=== PATIENT | female | born 1995 | race Caucasian/White ===

== ENCOUNTER → 2020-07-15 10:49 | Outpatient (BNVA) | payer MEDICAID, SELFPAY | PROVIDERS: PCP Emergency Medicine; Visit Provider Advanced Practice Midwife | DX: Z76.89 Persons encountering health services in other specified circumstances (principal) ==

== ENCOUNTER 2021-07-19 13:47 | Outpatient (REF) | payer MEDICAID, SELFPAY ==
[2021-07-20 09:20] LABS: CT PCR NOT DETECTED (Not Detect.); NG PCR NOT DETECTED (Not Detect.)
== END 2021-07-19 13:48 | disposition home or self-care (01) ==
LOC: HO.LAB 13:47
PROVIDERS: Visit Provider Obstetrics & Gynecology
DX: Z30.09 Encounter for other general counseling and advice on contraception (principal)
CPT/HCPCS: 87491; 87591; 99212

== ENCOUNTER 2023-06-09 10:36 | Outpatient (REF) | payer MEDICAID, SELFPAY | END 2023-06-09 10:37 | disposition home or self-care (01) | LOC: HO.HHCL 10:36 | PROVIDERS: Visit Provider Family Medicine | DX: Z00.00 Encounter for general adult medical examination without abnormal findings (principal); Z11.3 Encounter for screening for infections with a predominantly sexual mode of transmission | CPT/HCPCS: 0353U; 80048; 80061; 80076; 83735; 84443; 85025; 86780; 86803; 87389 ==

== ENCOUNTER 2024-05-30 14:28 | Outpatient (REF) | payer MEDICAID, SELFPAY ==
[2024-05-30 16:21] LABS: MANUAL DIFF FLAG NO
[2024-05-30 16:23] LABS: Basophils Percent Auto 0.4 % (0-2); Eosinophils Absolute Auto 0.4 X10*3/uL (0.0-0.4); Eosinophils Percent Auto 4.4 % (0-4); Hematocrit 39.2 % (37.0-47.0); Hemoglobin 12.6 g/dl (12.0-16.0); Imm Gran Abs Auto 0.03 X10*3/uL (0.00-0.03); Imm Gran Pct Auto 0.4 % (0.0-0.4); Lymphocytes Absolute Auto 2.3 X10*3/uL (1.2-4.9); Lymphocytes Percent Auto 28.7 % (20-40); Mean Corpuscular HGB Conc 32.1 g/dl (31.0-35.0); Mean Corpuscular Volume 84.1 fL (80.0-98.0); Mean Platelet Volume 10.9 fL (9.4-12.3); Monocytes Absolute Auto 0.4 X10*3/uL (0.1-1.2); Monocytes Percent Auto 5.5 % (2-11); Neutrophils Absolute Auto 4.8 x10*3/uL (2.0-8.3); Neutrophils Percent Auto 60.6 % (45-73); Platelet Count 272 X10*3/uL (160-400); Red Blood Count 4.66 X10*6/uL (4.20-5.50); White Blood Count 7.9 X10*3/uL (4.8-10.8)
[2024-05-30 17:13] LABS: TSH reflex Free T4 1.17 uIU/mL (0.32-4.0); Vitamin D 25-OH Total 23.8 ng/mL (>30)
[2024-05-31 04:05] LABS: Syphilis Screen Nonreactive (Nonreactive)
[2024-05-31 04:30] LABS: HIV AB/AG Nonreactive (Nonreactive); HIV Num 1 0.04 S/CO (0.00-0.99)
== END 2024-05-30 14:29 | disposition home or self-care (01) ==
LOC: HO.HHCL 14:28
PROVIDERS: Visit Provider Family Medicine
DX: Z12.4 Encounter for screening for malignant neoplasm of cervix (principal); F41.9 Anxiety disorder, unspecified; Z11.3 Encounter for screening for infections with a predominantly sexual mode of transmission; R51.9 Headache, unspecified; G89.29 Other chronic pain; R53.83 Other fatigue
CPT/HCPCS: 36415; 82306; 84443; 85025; 86780; 87389; 88175

== ENCOUNTER 2025-01-31 14:06 | Outpatient (REF) | payer MEDICAID, SELFPAY ==
--- OUTSIDE RECORDS SUMMARY | 2025-01-31 14:09 | XMS_ITS | Encounter Summary ---
Author Organization [employer] Address [address] [place] [address] 7 [place] [address] Care Team Providers Care Tailer In Name Role Phone Ainsley Singh MD Primary Care Provider +1- [phone] Encounter Details Date Type Department Care Team (Late st Contact Info) Description 05/10/2023 Orders Only [facility] MEDICINE [address] [place] [phone] Ainsley Singh MD [address] [place], [place] [phone] Social History Tobacco Use Types Packs/Day Years Used Date Smoking Tobacco: Never Passive Smoke Exposure: Never Smokeless Tobacco: Never Comments Unknown Sex and Gender Information Value Date Recorded Sex Assigned at Female 07/04/2022 10:36 AM EDT Legal Sex Female 10:36 AM EDT Gender Identity Female 07/04/2022 10:36 AM EDT Sexual Orientation Straight 07/04/2022 10 :36 AM EDT documented as of this encounter Plan of Treatment Upcoming Encounters Date Type Department Care Team (Late st Contact Info) Description 02/03/2025 10:45 AM EDT Office Visit [facility] MEDICINE [address] [place] [address] Ainsley Singh MD [address] [place], [place] [phone] 05/07/2025 3:00 PM EDT Office Visit [facility] ADULT DENTAL [address] [place] [address] Lea Miranda [address] [place] [address] documented as of this encounter Procedures Procedure Name Priority Date/Time Associated Diagnosis Comments SYPHILIS SCREEN Routine 06/09/2023 10:41 AM EDT HIV ANTIBODY/ANTIGEN ([place] DPH) Routine 06/09/2023 10:41 AM EDT documented in this encounter Results * HIV Ab/Ag ([place] DPH) (06/09/2023 10:41 AM EDT) HIV AB/AG Nonreactive Nonreactive [facility] Comment:HIV-1 p24 Ag and/or HIV-1/HIV-2 Ab not detected.A test result that is nonreactive does not exclude thepossibility of exposure to or infection with HIV-1 and/orHIV-2. Nonreactive results in this assay for individualswith prior exposure to HIV-1 and/or HIV-2 may be due toantigen and antibody levels that are below the limit ofdetection of this assay.The [employer] HIV Ag/Ab Combo assay result andsupplemental assay results should be interpreted inconjunction with the patient's clinical presentation,history and other laboratory results. If the results areinconsistent with clinical evidence, additional testing issuggested to confirm the result. 06/09/2023 10:4 1 AM EDT 06/09/2023 11:22 AM EDT Ainsley Singh MD LAB BLOOD ORDERABLES Final Result Performing Organization Address [facility] Co de Phone Number [facility] [address] [place] [phone] * Syphilis Screen (06/09/2023 10:41 AM EDT) Syphilis Screen Nonreactive Nonreactive [facility] 06/09/2023 10:4 1 AM EDT 06/09/2023 11:22 AM EDT Ainsley Singh MD LAB BLOOD ORDERABLES Final Result Performing Organization Address [facility]/State/ZIP Co de Phone Number [facility] [address] [place] [phone] [phone] documented in this encounter Visit Diagnoses Not on filedocumented in this encounter Care Teams Tailer In Relationship Specialty Start Date End Date Ainsley Singh MD [address] [place] [phone] PCP - General Family Medicine 03/20/23 documented as of this encounter
[2025-01-31 17:22] LABS: Basophils Percent Auto 0.4 % (0-2); Eosinophils Absolute Auto 0.2 X10*3/uL (0.0-0.4); Eosinophils Percent Auto 3.5 % (0-4); Mean Corpuscular Hemoglobin 27.3 pg (27.0-33.0); PLT CLUMP 1; SCAN SMEAR FLAG 1
[2025-01-31 17:23] LABS: Hematocrit 40.9 % (37.0-47.0); Hemoglobin 13.2 g/dl (12.0-16.0); Imm Gran Abs Auto 0.02 X10*3/uL (0.00-0.03); Imm Gran Pct Auto 0.4 % (0.0-0.4); Lymphocytes Absolute Auto 1.9 X10*3/uL (1.2-4.9); MANUAL DIFF FLAG SCAN; Mean Corpuscular HGB Conc 32.3 g/dl (31.0-35.0); Mean Corpuscular Volume 84.7 fL (80.0-98.0); Mean Platelet Volume 11.2 fL (9.4-12.3); Monocytes Absolute Auto 0.4 X10*3/uL (0.1-1.2); Monocytes Percent Auto 7.7 % (2-11); Neutrophils Absolute Auto 3.1 x10*3/uL (2.0-8.3); Red Blood Count 4.83 X10*6/uL (4.20-5.50); Red Cell Distribution Width 13.2 % (11.0-16.0)
[2025-01-31 17:29] LABS: Alanine Aminotransferase 16 U/L (0-31); Albumin Level 4.8 g/dL (3.5-5.0); Anion Gap 9 (12-20); Aspartate Amino Transferase 23 U/L (5-31); Bilirubin Total 0.5 mg/dL (0.0-1.0); Blood Urea Nitrogen 11 mg/dL (9-16); Calcium 9.9 mg/dL (8.4-10.2); Carbon Dioxide 25 mmol/L (22-29); Chloride 107 mmol/L (96-108); Estimated Glomerular Filt Rate > 60; Glucose Random 80 mg/dL (60-115); Potassium 3.8 mmol/L (3.3-5.1); Sodium 137 mmol/L (135-145)
[2025-01-31 17:54] LABS: Alkaline Phosphatase 63 U/L (39-117); Amylase 76 U/L (28-100)
[2025-01-31 18:06] LABS: Platelet Count 224 X10*3/uL (160-400); SLIDE REVIEW VERIFIED; White Blood Count 5.7 X10*3/uL (4.8-10.8)
== END 2025-01-31 14:07 | disposition home or self-care (01) ==
LOC: HO.HHCL 14:06
PROVIDERS: Visit Provider Nurse Practitioner Family
DX: R10.12 Left upper quadrant pain (principal)
CPT/HCPCS: 36415; 80053; 82150; 85025

== ENCOUNTER 2025-02-03 11:16 | Outpatient (REF) | payer MEDICAID, SELFPAY ==
[2025-02-03 13:53] LABS: Cholesterol 137 mg/dL (<200); HDL Cholesterol 42 mg/dL (>40); LDL Cholesterol Calculated 85 mg/dL (<100); Triglycerides 50 mg/dL (<150); Vitamin D 25-OH Total 36.3 ng/mL (>30)
[2025-02-04 08:35] LABS: HIV AB/AG Nonreactive (Nonreactive); HIV Num 1 0.05 S/CO (0.00-0.99); ~HepC Num1 0.18 S/CO (0.00-0.79); ~Hepatitis C Antibody Nonreactive (Nonreactive)
== END 2025-02-03 11:17 | disposition home or self-care (01) ==
LOC: HO.HHCL 11:16
PROVIDERS: Visit Provider Family Medicine
DX: Z11.3 Encounter for screening for infections with a predominantly sexual mode of transmission (principal); Z13.220 Encounter for screening for lipoid disorders; E55.9 Vitamin D deficiency, unspecified
CPT/HCPCS: 36415; 80061; 82306; 86803; 87389

== ENCOUNTER 2025-03-18 08:21 | Outpatient (REF) | payer MEDICAID, SELFPAY ==
--- NOTE | 2025-03-18 08:23 | EMG_ITS ---
Please see the attached neurophysiology report MTDD
--- OUTSIDE RECORDS SUMMARY | 2025-03-18 08:29 | XMS_ITS | Encounter Summary ---
Author Organization [employer] Address [address] [place] [address] 7 [place] [address] Care Team Providers Care Risk Control Product Liability Director Name Role Phone Ainsley Singh MD Primary Care Provider +1- [phone] Encounter Details Date Type Department Care Team (Late st Contact Info) Description 05/10/2023 Orders Only [facility] MEDICINE [address] [place] [address] [phone] Ainsley Singh MD [address] [place] [address] [phone] Social History Tobacco Use Types Packs/Day Years [...] Care Team (Late st Contact Info) Description 03/19/2025 11:30 AM EDT Office Visit [facility] MEDICINE [address] [place] [address] [phone] Ainsley Singh MD [address] [place] [address] [phone] 03/31/2025 11:00 AM EDT Nutrition [facility] DIABETES/NUTRITION [address] [place] [phone] [place] [address] 05/07/2025 3:00 PM EDT Office Visit [facility] ADULT DENTAL [address] [facility] [place] [address] Kris Mirandaaris [address] [place] [address] 05/13/2025 9:00 AM EDT Office Visit [facility] OPTOMETRY [address] [place] [address] TarVianey flores, OD [address] [place] [address] documented as of this encounter Procedures Procedure Name Priority Date/Time Associated Diagnosis Comments SYPHILIS SCREEN Routine 06/09/2023 10:41 AM EDT HIV ANTIBODY/ANTIGEN ([place] DPH) Routine 06/09/2023 10:41 AM EDT documented in this encounter Results * HIV Ab/Ag ([place] DPH) (06/09/2023 10:41 AM EDT) [facility] HIV AB/AG Nonreactive Nonreactive [facility] Comment:HIV-1 p24 Ag and/or HIV-1/HIV-2 Ab not detected.A test result that is nonreactive does not exclude thepossibility of exposure to or infection with HIV-1 and/orHIV-2. Nonreactive results in this assay for individualswith prior exposure to HIV-1 and/or HIV-2 may be due toantigen and antibody levels that are below the limit ofdetection of this assay.The [employer] HIV Ag/Ab Combo assay result andsupplemental assay results should be interpreted inconjunction with the patient's clinical presentation,history and other laboratory results. If the results areinconsistent with clinical evidence, additional testing issuggested to confirm the result. 06/09/2023 10:4 1 AM EDT 06/09/2023 11:22 AM EDT us Ainsley Singh MD LAB BLOOD ORDERABLES Final Result [facility] [address] [place] [phone] * Syphilis Screen (06/09/2023 10:41 AM EDT) Syphilis Screen Nonreactive Nonreactive [facility] 06/09/2023 10:4 1 AM EDT 06/09/2023 11:22 AM EDT Ainsley Singh MD LAB BLOOD ORDERABLES Final Result [facility] [address] [place] [phone] documented in this encounter Visit Diagnoses Not on filedocumented in this encounter Care Teams Risk Control Product Liability Director Relationship Specialty Start Date End Date Ainsley Singh MD [address] [place] [phone] PCP - General Family Medicine 03/20/23 documented as of this encounter
== END 2025-03-18 08:22 | disposition home or self-care (01) ==
LOC: HO.NEURO 08:21
PROVIDERS: PCP Family Medicine; Visit Provider Family Medicine
DX: M79.642 Pain in left hand (principal)
CPT/HCPCS: 95886; 95910

== ENCOUNTER → 2025-03-18 08:23 | Outpatient (BNV) | payer MEDICAID, SELFPAY | PROVIDERS: PCP Family Medicine; Visit Provider Psychiatry & Neurology Neurology | DX: G56.22 Lesion of ulnar nerve, left upper limb (principal) | CPT/HCPCS: 95886; 95910 ==

== ENCOUNTER 2025-06-30 14:33 | Outpatient (REF) | payer MEDICAID, SELFPAY ==
--- OUTSIDE RECORDS SUMMARY | 2025-06-27 10:45 | XMS_ITS | Encounter Summary ---
Author Organization [employer] Address [address] 7[address] [place] [address] Care Team Providers Care Hoop Machine Operator Name Role Phone Ainsley Singh MD Primary Care Provider +1- [phone] Encounter Details Date Type Department Care Team (Late st Contact Info) Description 06/27/2025 10:45 AM EDT Office Visit [facility] OPTOMETRY [address] [place] [address] Daniel, No, OD [address] [place] [address] Myopia, bilateral (Primary Dx) Social History Tobacco Use Types Packs/Day Years Used Date Smoking Tobacco: Never Passive Smoke Exposure: Never Smokeless Tobacco: Never Alcohol Use Standard Drinks/Week Comments Never 0 (1 standard drink = 0.6 oz pur e alcohol) Alcohol Answer Date Recorded Frequency of Alcohol Consumption Not on file 05/30/2024 Average Number of Drinks Not on file 024 Frequency of Binge Drinking Not on file 05/06 Score 0 05/30/2024 Depression Answer Date Recorded Patient Health Questionnaire-9 Score 9 02/17/2025 Patient Health Questionnaire-9 Score 9 02/17/2025 Last PHQ-9: Questionnaire Data Not on file 0 02/17/2025 Housing Stability Answer Date Recorded What is your housing situation today? I have uzma roth [address] you li ve. Do you have problems with any of the following? None of the above 2023 Food Insecurity Answer Date Recorded Within the past 12 months, y ou worried that your food would run out before you got money to buy more: Not on file 06/01/2025 Within the past 12 months,th e food you bought just didn't last and you didn't have enough money to get more: Never True Transportation Answer Date Recorded In the past 12 months, has l ack of transportation kept you from medical appts, meetings, work or from getting things needed for daily living? No 2023 Utilities Answer Date Recorded In the past 12 months, has t he electric, gas, oil or water company threatened to shut off services in your home? No 2023 Depression Answer Date Recorded Patient Health Questionnaire-2 Score 1 02/17/2025 Internet Access Answer Date Recorded Internet Access Q1 Yes 06/01/2025 Internet Access Q2 Not on file 06/01/2025 Comments No Sex and Gender Information Value Date Recorded Sex Assigned at Female 07/04/2022 10:36 AM EDT Legal Sex Female 10:36 AM EDT Gender Identity Female 07/04/2022 10:36 AM EDT Sexual Orientation Straight 07/04/2022 10 :36 AM EDT documented as of this encounter Progress Notes * No Sanchez OD - 06/27/2025 10:45 AM EDT MH glasses were dispensed. documented in this encounter Plan of Treatment Not on file documented as of this encounter Visit Diagnoses Diagnosis Myopia, bilateral- Primary documented in this encounter Additional Health Concerns Assessment Noted Time PHQ-9 Depression Total Score: 9 02/18/20 25 12:02 PM EDT documented as of this encounter Care Teams Hoop Machine Operator Relationship Specialty Start Date End Date Ainsley Singh MD [address] [place] [address] PCP - General Family Medicine 03/20/23 documented as of this encounter
--- OUTSIDE RECORDS SUMMARY | 2025-06-30 18:06 | XMS_ITS | Encounter Summary ---
Author Organization [employer] Address [address] [place] [address] 7t [place] [address] Care Team Providers Care Call Worker Name Role Phone Ainsley Singh MD Primary Care Provider +1- [phone] Reason for Visit * Reason Onset Date Comments MMR 06/30/2025 Encounter Details Date Type Department Care Team ([facility] st Contact Info) Description 06/30/2025 Telephone [facility] MEDICINE [address] [place] [phone] Rosemary Sales RN MMR Social History Tobacco Use Types Packs/Day Years [...] AM EDT documented as of this encounter Miscellaneous Notes * Telephone Encounter - Rosemary Sales RN - 06/30/2025 10:49 AM EDT TC placed to the pt to inform and advise that the requested order for MMR titers have been placed by PCP. Pt advised that this can be done at the [facility] on the first floor and if results are needed to contact the office. Pt stated understanding and had no further questions at this time. * Telephone Encounter - Rosemary Sales RN - 06/30/2025 8:49 AM EDT TC from [employer] in forms who states that the pt needs to have titers drawn to check immunity for MMR. Will route this request to PCP for review. documented in this encounter Plan of Treatment Not on file documented as of this encounter Visit Diagnoses Not on filedocumented in this encounter Additional Health Concerns Assessment Noted Time PHQ-9 Depression Total Score: 9 02/18/20 25 12:02 PM EDT documented as of this encounter Care Teams Call Worker Relationship Specialty Start Date End Date Ainsley Singh MD [address] [place] [phone] PCP - General Family Medicine 03/20/23 documented as of this encounter
--- OUTSIDE RECORDS SUMMARY | 2025-06-30 18:06 | XMS_ITS | Encounter Summary ---
Author Organization [employer] Address [address] [facility] 7t [place] [address] Care Team Providers Care Cardiac Exercise Physiologist Name Role Phone Ainsley Singh MD Primary Care Provider +1- [phone] Encounter Details Date Type Department Care Team ([facility] st Contact Info) Description 05/10/2023 Orders Only [facility] MED[facility] [address] [place], [place] [phone] Ainsley Singh MD [address] [place], [place] [phone] Social History Tobacco Use Types Packs/Day Years [...] as of this encounter Plan of Treatment Not on file documented as of this encounter Procedures Procedure Name Priority Date/Time Associated Diagnosis Comments SYPHILIS SCREEN Routine 06/09/2023 10:41 AM EDT HIV ANTIBODY/ANTIGEN ([place] DPH) Routine 06/09/2023 10:41 AM EDT documented in this encounter Results * HIV Ab/Ag ([place] DPH) (06/09/2023 10:41 AM EDT) HIV AB/AG Nonreactive Nonreactive [facility] Comment:HIV-1 p24 Ag and/or HIV-1/HIV-2 Ab not detected.A test result that is nonreactive does not exclude thepossibility of exposure to or infection with HIV-1 and/orHIV-2. Nonreactive results in this assay for individualswith prior exposure to HIV-1 and/or HIV-2 may be due toantigen and antibody levels that are below the limit ofdetection of this assay.The [employer] HIV Ag/Ab Combo assay result andsupplemental assay results should be interpreted inconjunction with the patient's clinical presentation,history and other laboratory results. If the results areinconsistent with clinical evidence, additional testing issuggested to confirm the result. 06/09/2023 10:4 1 AM EDT 06/09/2023 11:22 AM EDT Ainsley Singh MD LAB BLOOD ORDERABLES Final Result Performing Organization Address [facility] Co de Phone Number [facility] [address] [place] [phone] * Syphilis Screen (06/09/2023 10:41 AM EDT) Syphilis Screen Nonreactive Nonreactive [facility] 06/09/2023 10:4 1 AM EDT 06/09/2023 11:22 AM EDT Ainsley Singh MD LAB BLOOD ORDERABLES Final Result Performing Organization Address [facility] de Phone Number [facility] [address] [place] [phone] documented in this encounter Visit Diagnoses Not on filedocumented in this encounter Care Teams Cardiac Exercise Physiologist Relationship Specialty Start Date End Date Ainsley Singh MD [address] [place] [phone] PCP - General Family Medicine 03/20/23 documented as of this encounter
--- OUTSIDE RECORDS SUMMARY | 2025-06-30 18:06 | XMS_ITS | Encounter Summary ---
Author Organization [employer] Address [address] [facility] 7t [place] [address] Care Team Providers Care Laborer Marine Terminal Name Role Phone Ainsley Singh MD Primary Care Provider +1- [phone] Encounter Details Date Type Department Care Team ([facility] st Contact Info) Description 06/30/2025 Orders Only [facility] MEDICINE [address] [place], [place] [phone] Ainsley Singh MD [address] [place], [place] [phone] History of measles, mumps, rubella (MMR) vaccination unknown (Primary Dx) Social History Tobacco Use Types [...] as of this encounter Plan of Treatment Scheduled Orders Name Type Priority Associated Diagnoses Orde r Schedule Measles, Mumps, and Rubella (MMR) Antibodies (IgG) Panel, Immune Status Lab Routine History of measles, mumps, rubella (MMR) vaccination unknown Expected: 06/30/2025 (Approximate), Expires: 06/30/2026 documented as of this encounter Visit Diagnoses Diagnosis History of measles, mumps, rubella (MMR) vaccination unknown- Primary documented in this encounter Additional Health Concerns Assessment Noted Time PHQ-9 Depression Total Score: 9 02/18/20 25 12:02 PM EDT documented as of this encounter Care Teams Laborer [employer] Relationship Specialty Start Date End Date Anisley Singh MD [address] [place] [address] PCP - General Family Medicine 03/20/23 documented as of this encounter
--- OUTSIDE RECORDS SUMMARY | 2025-06-30 18:06 | XMS_ITS | Clinical Summary ---
Author Organization [employer] Address [address] [place] [address] 7[address] [place] [address] Care Team Providers Care Customer Service Officer Name Role Phone Ainsley Singh MD Primary Care Provider [phone] Allergies Active Allergy Reactions Criticality Noted Date Comments Levofloxacin Anaphylaxis High 05/20/2021 Penicillins Anaphylaxis,Rash High 06/26/2019 Shrimp (Diagnostic) 05/10/2023 Medications * This document contains information received from the source organization and may not represent a complete record from that organization. EPINEPHrine (Epipen) 0.3 MG/0.3ML injection syringeIndicati ons:Shrimp allergy Inject 0.3 mL (0.3 mg) as directed 1 (one) time for 1 dose. use as directed for allergic reaction and then call 911 1 each 5 Active buPROPion (Wellbutrin) 75 MG tabletIndicatio ns:Mild depressive disorder Take 1 tablet (75 mg) by mouth 2 times daily. 60 tablet 11 5 03/19/20 26 Active Additional Information Patient not taking.Reason: Not effective, Reported on 05/28/2025 cholecalciferol (Vitamin D-3) 25 MCG (1000 UT) tabletIndicatio ns:Vitamin D Deficiency Take 1 tablet (25 mcg) by mouth Once per day. 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 No evidence of a median neuropathy or proximal lesion -continue Occupational therapy Assessment & Plan (03/19/2025 12:11 PM EDT): -dx , improving -NCS done 03/18/25, await results -continue Occupational therapy Assessment & Plan (02/03/2025 11:37 AM EDT): -not improving with brace given 11/2024 -NCS ordered 02/03/25 -re referred to Occupational therapy 02/03/25 Assessment & Plan (11/07/2024 1:44 PM EST): I immobilized the thumb and wrist with a splint, advised to keep her during the daytime at work and at night. She should keep both hand and wrist straight as much as she can when she is not using the splint to help rest the tendons. I gave her information regarding rehab exercises for her hand and advised to avoid repetitive thumb/wrists movements as much as possible. Advised to use protective gloves at work and while lifting heavy objects, should avoid lifting loads more than 15 to 20 pounds for the next month, letter for work given to patient Take meloxicam x 1 week then Tylenol as needed and refer to OT Vitamin D deficiency 05/31/2024 Overview (05/31/2024): Lab Results Component Value Date [id number] 23.8 (L) 05/30/2024 -daily vit d started 05/31/24 Anxiety 05/30/2024 Overview (05/30/2024): -ordered TSH 05/30/24 -referred to [facility] 05/30/24 Assessment & Plan (07/02/2024 10:06 AM EDT): During IBH Consult Misty presenting with depressed mood, Tearful, crying spells , irritable mood, loss of interests/pleasure , sense of isolation/loneliness , change in appetite or weight overeating, changes in sleep difficulty staying asleep , psychomotor retardation, fatigue/loss of energy, inappropriate/excessive guilt , difficulty concentrating and excessive worry/anxiety, difficulty controlling worry, anxiety/worry associated to restlessness and/or feeling keyed-up/On edge , easily fatigued , difficulty concentrating and/or mind going blank , irritability, and sleep disturbance difficulty staying asleep , and sense of dread ; for a period of 18+ mo, for most or all symptoms in the context of family issues and housing. Misty reported her symptoms are associated with raising her two children and being a single mom. She is currently living at her mom's house. Family relocated from [place] about two years ago. Pt reports experiencing high levels of anxiety, used coping mechanisms but unable to manage when sxs are prolonged by external triggers. clinician engaged patient with active/reflective listening. Reviewed and assessed for risk, current stressors and protective factors using open-ended questions. Provided a safe space to share her emotions and concerns. Discussed coping mechanisms to utilize as incorporating self-care into daily routine. Assessment & Plan (05/30/2024 11:48 AM EDT): -ordered TSH 05/30/24 -referred to behavior health 05/30/24 Weight loss, non-intentional 05/30/2024 Overview (02/03/2025): Lab Results Component Value Date TSH 1.17 05/30/2024 TSH 0.89 06/09/2023 -ordered TSH 05/30/24 -grandmother has thyroid disease. Assessment & Plan (05/30/2024 11:52 AM EDT): -ordered TSH 05/30/24 -grandmother has thyroid disease. Overweight 03/01/2024 Overview (03/19/2025): Pt interested in medication. Options discussed. She would like to try Wellbutrin off label. Baseline weight 142 lbs 02/03/25 BMI Readings from Last 3 Encounters: 03/19/25 26.23 kg/m 02/03/25 26.83 kg/m 01/31/25 26.91 kg/m Wt Readings from Last 3 Encounters: 03/19/25 138 lb 12.8 oz (63 kg) 02/03/25 142 lb (64.4 kg) 01/31/25 142 lb 6.4 oz (64.6 kg) -Wellbutrin 100mg bid started 02/03/25, she would like doewr dose due to come anxiety but liking the results. -Welbutrin decreased to 75 bid 03/19/25 -nutrition referral 02/03/25 -continue using exercise bike Assessment & Plan (03/19/2025 12:11 PM EDT): Pt interested in medication. Options discussed. She would like to try Wellbutrin off label. Baseline weight 142 lbs 02/03/25 BMI Readings from Last 3 Encounters: 03/19/25 26.23 kg/m 02/03/25 26.83 kg/m 01/31/25 26.91 kg/m Wt Readings from Last 3 Encounters: 03/19/25 138 lb 12.8 oz (63 kg) 02/03/25 142 lb (64.4 kg) 01/31/25 142 lb 6.4 oz (64.6 kg) -Wellbutrin 100mg bid started 02/03/25, she would like doewr dose due to come anxiety but liking the results. -Welbutrin decreased to 75 bid 03/19/25 -nutrition referral 02/03/25 -continue using exercise bike Assessment & Plan (02/03/2025 11:40 AM EDT): Pt interested in medication. Options discussed. She would like to try Wellbutrin off label. Baseline weight 142 lbs 02/03/25 -Wellbutrin 100mg bid started 02/03/25 -nutrition referral 02/03/25 -continue using exercise bike -follow up 6 weeks for weight check History of appendectomy 02/28/2024 Overview (05/30/2024): -pt [place] uncomplicated [place] outside of state on 02/12/2024 -had sutures removed on 03/05/24 Assessment & Plan (05/30/2024 11:48 AM EDT): -pt had uncomplicated laparoscopic appendectomy outside of state on 02/12/2024 -had sutures removed on 03/05/24 Assessment & Plan (03/01/2024 10:56 AM EDT): -pt had uncomplicated laparoscopic appendectomy outside of state on 02/12/2024 -she is due for suture removal -will set up with the nurses for suture removal this week -she agrees with the plan Family planning 06/09/2023 Overview (06/09/2023): -Pt had tubal ligation 04/2023 Assessment & Plan (06/09/2023 10:31 AM EDT): -Pt had tubal ligation 04/2023 -declines condoms Other specified health status 05/31/2023 Overview (02/03/2025): -next comprehensive annual evaluation due after 02/03/26 -eye care facilitated by [facility] -dental home is [facility] -health care proxy given and filed 05/30/24 Assessment & Plan (05/30/2024 11:57 AM EDT): -next physical exam due after 06/09/2024 -eye care facilitated by [facility] -dental [place] is [facility] -health care proxy given and filed 05/30/24 Assessment & Plan (06/09/2023 10:02 AM EDT): -next physical exam due after 06/09/2024 -eye care facilitated by critical [facility] is [facility] Chronic bilateral low back pain without sciatica 03/20/2023 Overview (03/01/2024): -referral to chiropractor done on 02/28/2024 Assessment & Plan (03/20/2023 2:23 PM EDT): Likely musculoskeletal. Non-focal, normal motor exam without neurological deficits. No back pain red-flags: bowel/bladder incontinence, IVDU, urinary retention, saddle anesthesia, and significant motor deficits. -Recommend Naproxen prn. She had back reaction to baclofen in past. Advise to call for Physical therapy referral if no Improment in 10-14 days. -Lifting precaution sand stretching reviewed. -ER precaution discussed. Resolved Problems Problem Noted Date Diagnosed Date Resolved Date Left upper quadrant pain 01/31/202510/2024 Moderate major depression (CMS/HCC) 07/01/2024 02/03/2025 Assessment & Plan (07/02/2024 10:06 AM EDT): During IBH Consult Misty presenting with depressed mood, Tearful, crying spells , irritable mood, loss of interests/pleasure , sense of isolation/loneliness , change in appetite or weight overeating, changes in sleep difficulty staying asleep , psychomotor retardation, fatigue/loss of energy, inappropriate/excessive guilt , difficulty concentrating and excessive worry/anxiety, difficulty controlling worry, anxiety/worry associated to restlessness and/or feeling keyed-up/On edge , easily fatigued , difficulty concentrating and/or mind going blank , irritability, and sleep disturbance difficulty staying asleep , and sense of dread ; for a period of 18+ mo, for most or all symptoms in the context of family issues and housing. Misty reported her symptoms are associated with raising her two children and being a single mom. She is currently living at her mom's house. Family relocated from [place] about two years ago. Pt reports experiencing high levels of anxiety, used coping mechanisms but unable to manage when sxs are prolonged by external triggers. clinician engaged patient with active/reflective listening. Reviewed and assessed for risk, current stressors and protective factors using open-ended questions. Provided a safe space to share her emotions and concerns. Discussed coping mechanisms to utilize as incorporating self-care into daily routine. Acute pericoronitis 06/27/2024 02/04/20 Pap smear for cervical cancer screening 05/30/2024 08/17/2024 Overview (05/30/2024): Pap with HPV testing done on STI testing offered, PreP offered. Preventative care and harm reduction discussed. Other fatigue 05/30/2024 08/17/2024 Chronic nonintractable headache 05/30/2024 02/03/2025 Overview (05/30/2024): -ordered Vit D, TSH, iron and ferritin panel 05/30/24 Assessment & Plan (05/30/2024 11:55 AM EDT): -ordered Vit D, TSH, iron and ferritin panel 05/30/24 Encounter for Papanicolaou smear of cervix 07/14/2023 02/27/2024 Dietary counseling 06/09/2023 Exercise counseling 06/09/2023 08/17/20 Routine screening for STI (s exually transmitted infection) 06/09/2023 02/27/2024 Physical exam 06/08/2023 08/17/2024 Overview (06/09/2023): -Normal growth and development. -Anticipatory guidance discussed. -Preventative care / harm reduction discussed Assessment & Plan (06/09/2023 9:00 AM EDT): -Normal growth and development. -Anticipatory guidance discussed. -Preventative care / harm reduction discussed. Routine adult health maintenance 11/30/2022 06/08/2023 Encounters Date Type Department Care Team Description 06/30/2025 Orders Only [facility] MEDIC[facility] [address] [place] [address] Ainsley Singh MD History of measles, mumps, rubella (MMR) vaccination unknown (Primary Dx) 06/30/2025 Telephone [facility] [address], [place] [phone] Rosemary Sales RN MMR 06/27/2025 10:45 AM EDT Office Visit [facility] OPTOMETRY [address] [place], [place] [phone] Daniel, No, OD Myopia, bilateral (Primary Dx) 06/12/2025 10:40 AM EDT Office Visit [facility] WALK-IN CENTER [address], [place] [phone] Luke Lau MD Viral URI 06/12/2025 Travel 05/22/2025 Telephone [facility] [address] [place] [address] Ainsley Singh MD Telephone Call 05/15/2025 Refill [facility] [address] [place] [address] Ainsley Singh MD Vitamin D deficiency; Mild depressive disorder 05/13/2025 9:00 AM EDT Office Visit [facility] OPTOMETRY [address] [place] [address] Vianey Miles, OD Myopia, bilateral (Primary Dx) 05/13/2025 Travel 04/16/2025 Telephone [facility] MEDICINE [address] [place] [address] Ainsley Singh MD from Last 3 Months Immunizations Immunization Administration Dates Next Due Hep B, adult 02/03/2025,05/30/2024,06/09/2023 Influenza injectable quadriv alent preservative free 06/09/2023,07/11/2019 Influenza, seasonal, injecta ble, preservative free 05/30/2024 Tdap 07/11/2019 Family History Medical History Relation Name Comments Diabetes Maternal Grandmother Hypertension Mother Relation Name Status Comments Maternal Grandmother Mother Social History Tobacco Use Types Packs/Day Years Used Date Smoking Tobacco: Never Passive Smoke Exposure: Never Smokeless Tobacco: Never Tobacco Cessation:Counseling Given: Not Answered Alcohol Use Standard Drinks/Week Comments Never 0 [...] Orientation Straight 07/04/2022 10 :36 AM EDT Last Filed Vital Signs Vital Sign Reading Time Taken Comments Blood Pressure 117/72 06/12/2025 10:40 AM EDT Pulse 85 06/12/2025 10:40 AM EDT Temperature 36.7 C (98.1 F) 06/12/2025 10:40 AM EDT Respiratory Rate 18 06/12/2025 10:40 AM EDT Oxygen Saturation 99% 06/12/2025 10:40 AM EDT Inhaled Oxygen Concentration - - Weight 63 kg (139 lb) 06/12/2025 10:40 AM EDT Height 154.9 cm (5' 1 ) 03/19/2025 11:44 AM EDT Body Mass Index 26.26 03/19/2025 11:44 AM EDT Plan of Treatment Health Maintenance Due Date Last Done Comments Dental Oral Exam 1996 Dental Prophylaxis 1996 Dental X-Ray: Bitewings 1996 Alcohol/Substance Use Screening 2008 Family Planning (PISQ) 2011 HPV Vaccines (1 - 3-dose series) 2011 COVID-19 Vaccine (2 - 2024-2 6 season) 2025 07/08/2021 Influenza Vaccine (#1) 2025 , 06/09/2023, 07/11/2019 SDOH Screening 05/30/2025 05/30/2024 Depression Monitoring 08/19/2025 02/17/2025 , 02/17/2025 Disability Screening 02/03/2026 02/03/2025 Tobacco Screening 06/12/2026 06/12/2025 Pap Smear 05/30/2027 05/30/2024 Dental X-Ray: Full Mouth 06/28/2027 024, 06/26/2019 DTaP/Tdap/Td Vaccines (2 - T d or Tdap) 07/11/2029 07/11/2019 Zoster Vaccines (1 of 2) 2046 RSV Patients and Patients Aged 60 years or older (1 - 1-dose 75+ series) 2071 HIV Screening Completed 02/03/2025, 05/30/2024, 06/09/2023 Hepatitis B Vaccines Completed 02/03/2025, 05/30/2024, 06/09/2023 Hepatitis C Screening Completed 02/03/2025 , 06/09/2023 HIB Vaccines Aged Out No longer eligi ble based on patient's age to complete this topic Hepatitis A Vaccines Aged Out No long er eligible based on patient's age to complete this topic IPV Vaccines Aged Out No longer eligi ble based on patient's age to complete this topic Meningococcal B Vaccine Aged Out No l onger eligible based on patient's age to complete this topic Meningococcal Vaccine Aged Out No karla jessika eligible based on patient's age to complete this topic Pneumococcal Vaccine: Pediatrics (0 to 5 Years) and At-Risk Patients (6 to 49) Years Aged Out No longer eligible b ased on patient's age to complete this topic RSV under 20 months Aged Out No longe r eligible based on patient's age to complete this topic Rotavirus Vaccines Aged Out No longer eligible based on patient's age to complete this topic Procedures Procedure Name Priority Date/Time Associated Diagnosis Comments POCT INFLUENZA A (ID NOW RAPID MOLECULAR) Routine 06/12/2025 10:55 AM EDT Viral URI POCT INFLUENZA B (ID NOW RAPID MOLECULAR) Routine 06/12/2025 10:54 AM EDT Viral URI POCT RAPID COVID ANTIGEN Routine 06/12/2025 10:42 AM EDT Viral URI HEPATITIS C AB W/REFL TO HCV RNA, QN, PCR Routine 02/03/2025 11:18 AM EDT Routine screening for STI (sexually transmitted infection) HIV 1/2 ANTIGEN/ANTIBODY, FOURTH GENERATION W/RFL Routine 02/03/2025 11:18 AM EDT Routine screening for STI (sexually transmitted infection) PANORAMIC RADIOGRAPHIC IMAGE Routine 06/27/2024 1:00 PM EDT THINPREP IMAGING PAP WITH REFLEX TO HPV MRNA E6/E7 Routine 05/30/2024 12:00 AM EDT Vitamin D deficiency from Last 3 Months or Most Recently Relevant to Health Maintenance Results * Influenza A (ID NOW Rapid Molecular) (06/12/2025 10:55 AM EDT) Influenza A Negative Negative, Indeterminate [facility] Swab 06/12/2025 10:5 5 AM EDT us Luke Lau MD POINT OF CARE TEST ENTER/EDIT OR DERABLES Final Result Performing Organization Address City/[facility] Co de Phone Number [facility] [address] [place] [phone] * Influenza B (ID NOW Rapid Molecular) (06/12/2025 10:54 AM EDT) Influenza B Negative Negative, Indeterminate [facility] Swab 06/12/2025 10:5 4 AM EDT us Luke Lau MD POINT OF CARE TEST ENTER/EDIT OR DERABLES Final Result Performing Organization Address [facility] Co de Phone Number [facility] [address] [place] [phone] * POCT Rapid COVID Ag (06/12/2025 10:42 AM EDT) [facility] Rapid COVID Ag Negative Swab 06/12/2025 10:4 2 AM EDT Luke Lau MD POINT OF CARE TEST ENTER/EDIT OR DERABLES Final Result * Hepatitis C Antibody with Reflex to HCV, RNA, Quantitative, Real-Time PCR (02/03/2025 11:18 AM EDT) [facility] Hepatitis C Antibody Nonreactive Nonreactive [facility] Comment:Antibodies to HCV no t detected; does not exclude early acuteHCV infection. Blood Venous blood specimen / Unknown 02/03/2025 11:18 AM EDT 02/03/2025 12:59 PM EDT Ainsley Singh MD LAB BLOOD ORDERABLES Final Result Performing Organization Address [facility] Co de Phone Number [facility] [address] [place] [phone] * HIV-1/2 Antigen and Antibodies, Fourth Generation, with Reflexes (02/03/2025 11:18 AM EDT) [facility] HIV AB/AG Nonreactive Nonreactive [facility] Comment:HIV-1 p24 Ag and/or HIV-1/HIV-2 Ab not detected.A test result that is nonreactive does not exclude thepossibility of exposure to or infection with HIV-1 and/orHIV-2. Nonreactive results in this assay for individualswith prior exposure to HIV-1 and/or HIV-2 may be due toantigen and antibody levels that are below the limit ofdetection of this assay.The [employer] HIV Ag/Ab Combo assay result andsupplemental assay results should be interpreted inconjunction with the patient's clinical presentation,history and other laboratory results. If the results areinconsistent with clinical evidence, additional testing issuggested to confirm the result. Blood Venous blood specimen / Unknown 02/03/2025 11:18 AM EDT 02/03/2025 12:59 PM EDT us Ainsley Singh MD LAB BLOOD ORDERABLES Final Result [facility] [address] [place] [phone] * ThinPrep Imaging Pap with Reflex to HPV mRNA E6/E7 (05/30/2024 12:00 AM EDT) HPV nRNA E6/E7 [facility] SOURCE: SEE NOTE [facility] Comment:None given Report Status: [facility] Clinical Information: SEE NOTE [facility] Comment:None given LMP: SEE NOTE [facility] Comment:NONE GIVEN Prev. PAP: SEE NOTE [facility] Comment:NONE GIVEN Prev. BX: SEE NOTE [facility] Comment:NONE GIVEN Statement Of Adequacy: SEE NOTE [facility] Comment:Satisfactory for rafael luation.Endocervical/transformation zone componentpresent. General Categorization: [facility] Interpretation/Result: SEE NOTE [facility] Comment:Cytology Results: Ne gative for intraepitheliallesion or malignancy. Cytology Comment SEE NOTE [facility] Comment:This Pap test has be en evaluated with computerassisted technology. Zoology Professor: SEE NOTE [facility] Comment:YP, CT(ASCP)CT scree madeleine location: [address] [address] Review Zoology Professor: SEE NOTE [facility] Comment:MSM, CT(ASCP)CT scre ening location: [address] [address] Pathologist [facility] PAP Infection [facility] See Note SEE [facility] Comment:EXPLANATORY NOTE:The Pap is a screening test for cervical cancer. It isnot a diagnostic test and is subject to false negativeand false positive results. It is most reliable when asatisfactory sample, regularly obtained, is submittedwith relevant clinical findings and history, and whenthe Pap result is evaluated along with historic andcurrent clinical information.THIS TEST WAS PERFORMED AT:[facility] [place] [phone] WHITT MD 05/30/2024 05/30/2024 Narrative [facility] - 06/05/2024 2:31 PM EDT SEE SCANNED RESULTS IN EMR us Ainsley Singh MD LAB PATHOLOGY ORDERABLES F inal Result [facility] [address] [place] [phone] from Last 3 Months or Most Recently Relevant to Health Maintenance Insurance [facility] [employer]-[facility] [place] [id number] Advance Directives Documents on File Type Date Recorded Patient Splitter Head Expl anation Advance Directives and Living Will 05/30/2024 Health Care Proxy 05/30/24 Care Teams Customer Service Officer Relationship Specialty Start Date End Date Ainsley Singh MD [address] [place] [phone] PCP - General Family Medicine 03/20/23
[2025-07-01 09:19] LABS: Rubeola IgG (Measles) 69.90 AU/mL
== END 2025-06-30 14:34 | disposition home or self-care (01) ==
LOC: HO.HHCL 14:33
PROVIDERS: PCP Family Medicine; Visit Provider Family Medicine
DX: Z01.84 Encounter for antibody response examination (principal); Z78.9 Other specified health status
CPT/HCPCS: 36415; 86735; 86762; 86765